=== PATIENT | female | born 1960 | race Caucasian/White ===

== ENCOUNTER 2018-01-12 23:16 | Inpatient (IN) | payer BC ==
[2018-01-13] MEDS ORDERED: ONDANSETRON 4MG/2ML VIAL (J2405) As Ordered ×2 (00:59→14:39)
[2018-01-13] MEDS ORDERED: MORPHINE 4 MG/ML 1ML VIAL/SYRINGE (J2270) As Ordered (00:59)
[2018-01-13] MEDS: ONDANSETRON 4MG/2ML VIAL (J2405) IV (01:14)
[2018-01-13] MEDS: MORPHINE 4 MG/ML 1ML VIAL/SYRINGE (J2270) IV ×4 (01:14→19:47)
[2018-01-13 01:56] LABS: BASO % 0.2 % (0.0-1.0); EOS % 0.1 % (0.0-3.0); HEMATOCRIT 38.7 % (36.0-47.0); HEMOGLOBIN 13.6 g/dl (12.0-15.5); IMMATURE GRANULOCYTE % 0.6 % (0-3.0); LYMPH # 0.5 10^3/uL (1.5-4.5); LYMPH % 3.6 % (24.0-44.0); MEAN CORPUSCULAR HGB CONC 35.1 g/dl (32.0-36.5); MEAN CORPUSCULAR VOLUME 82.5 fl (80.0-96.0); MONO # 0.8 10^3/uL (0.0-0.8); MONO % 5.7 % (0.0-5.0); NEUTROPHILS # 12.9 10^3/uL (1.8-7.7); NEUTROPHILS % 89.8 % (36.0-66.0); PLATELET COUNT, AUTOMATED 261 10^3/uL (150-450); RED BLOOD COUNT 4.69 10^6/uL (4.00-5.40); RED CELL DISTRIBUTION WIDTH 12.2 % (11.5-14.5); WHITE BLOOD COUNT 14.3 10^3/uL (4.0-10.0)
[2018-01-13 02:14] LABS: INR 1.03; PROTHROMBIN TIME 13.6 SECONDS (12.1-14.4)
[2018-01-13 02:15] LABS: PARTIAL THROMBOPLASTIN TIME 24.6 SECONDS (25.4-37.6)
[2018-01-13 02:18] LABS: ANION GAP 10 MEQ/L (8-16); BLOOD UREA NITROGEN 21 MG/DL (7-18); CALCIUM LEVEL 8.6 MG/DL (8.5-10.1); CARBON DIOXIDE LEVEL 24 MEQ/L (21-32); CHLORIDE LEVEL 104 MEQ/L (98-107); CREATININE FOR GFR 0.78 MG/DL (0.55-1.30); GLOMERULAR FILTRATION RATE > 60.0 (>51); GLUCOSE, FASTING 323 MG/DL (70-100); POTASSIUM SERUM 4.2 MEQ/L (3.5-5.1); SODIUM LEVEL 138 MEQ/L (136-145)
[2018-01-13] MEDS: MORPHINE 2 MG/ML 1ML SYRINGE (J2270) IV (04:23)
[2018-01-13] MEDS ORDERED: ONDANSETRON 4MG/2ML VIAL (J2405) IV ×2 (04:45→17:00)
[2018-01-13] MEDS ORDERED: GLUCAGON FOR INJ 1 MG VIAL (J1610) SC (05:00)
[2018-01-13] MEDS ORDERED: GLUCOSE 4 GM CHEW TABLET PO (05:00)
[2018-01-13] MEDS ORDERED: DEXTROSE 50% 50 ML SYRINGE IV (05:00)
[2018-01-13] MEDS: NS 1,000 ML IV ×2 (06:17→14:34)
[2018-01-13 06:23] LABS: BEDSIDE GLUCOSE 283 MG/DL (70-105)
[2018-01-13] MEDS: HumaLOG INSULIN (NovoLOG) PER UNIT SC ×6 (06:35→23:53)
[2018-01-13] MEDS ORDERED: PERCOCET 5MG/325MG TAB PO ×2 (07:15→17:15)
[2018-01-13] MEDS: PERCOCET 5MG/325MG TAB PO ×3 (08:05→23:48)
[2018-01-13 08:59] LABS: BASO % 0.3 % (0.0-1.0); EOS # 0.1 10^3/uL (0.0-0.50); HEMATOCRIT 36.1 % (36.0-47.0); HEMOGLOBIN 12.8 g/dl (12.0-15.5); IMMATURE GRANULOCYTE % 0.3 % (0-3.0); LYMPH # 0.7 10^3/uL (1.5-4.5); LYMPH % 12.1 % (24.0-44.0); MEAN CORPUSCULAR HEMOGLOBIN 29.1 pg (27.0-33.0); MEAN CORPUSCULAR HGB CONC 35.5 g/dl (32.0-36.5); MONO # 0.8 10^3/uL (0.0-0.8); MONO % 13.8 % (0.0-5.0); NEUTROPHILS # 4.2 10^3/uL (1.8-7.7); NEUTROPHILS % 72.5 % (36.0-66.0); PLATELET COUNT, AUTOMATED 243 10^3/uL (150-450); RED CELL DISTRIBUTION WIDTH 12.3 % (11.5-14.5); WHITE BLOOD COUNT 5.8 10^3/uL (4.0-10.0)
[2018-01-13 09:27] LABS: ALBUMIN 3.1 GM/DL (3.2-5.2); ALBUMIN/GLOBULIN RATIO 1.03 (1.00-1.93); ALKALINE PHOSPHATASE 77 U/L (45-117); ALT/SGPT 29 U/L (12-78); ANION GAP 8 MEQ/L (8-16); AST/SGOT 14 U/L (7-37); BILIRUBIN,TOTAL 0.8 MG/DL (0.2-1.0); BLOOD UREA NITROGEN 17 MG/DL (7-18); CALCIUM LEVEL 7.9 MG/DL (8.5-10.1); CARBON DIOXIDE LEVEL 27 MEQ/L (21-32); CHLORIDE LEVEL 106 MEQ/L (98-107); GLOMERULAR FILTRATION RATE > 60.0 (>51); GLUCOSE, FASTING 252 MG/DL (70-100); SODIUM LEVEL 141 MEQ/L (136-145); TOTAL PROTEIN 6.1 GM/DL (6.4-8.2)
[2018-01-13 09:41] LABS: ESTIMATED AVERAGE GLUCOSE 255 MG/DL (60-110); HEMOGLOBIN A1c 10.5 %
[2018-01-13 12:02] LABS: BEDSIDE GLUCOSE 221 MG/DL (70-105)
[2018-01-13] MEDS ORDERED: PROPOFOL 200 MG/20 ML VIAL As Ordered (14:03)
[2018-01-13] MEDS ORDERED: LIDOCAINE 2% INJ 100 MG/5 ML SDV (FOR ANES.) As Ordered (14:03)
[2018-01-13] MEDS ORDERED: fentaNYL 100 MCG/2 ML INJECTION (J3010) As Ordered ×2 (14:04→17:30)
[2018-01-13] MEDS ORDERED: MIDAZOLAM INJ 2 MG/2 ML VIAL (J2250) As Ordered (14:04)
[2018-01-13] MEDS ORDERED: ROCURONIUM BROMIDE 50 MG/5 ML VIAL As Ordered (14:23)
[2018-01-13] MEDS ORDERED: METOCLOPRAMIDE INJ 10MG/2ML VIAL (J2765) As Ordered (14:39)
[2018-01-13] MEDS: ceFAZolin 2 GM/D5W 50 ML IV BAG (J0690 PER 500MG) As Ordered (15:19)
[2018-01-13] MEDS ORDERED: HYDROmorphone HCL 2 MG/ML 1ML VIAL (J1170) As Ordered (15:26)
[2018-01-13] MEDS ORDERED: GLYCOPYRROLATE INJ 0.2 MG/ML 2 ML VIAL As Ordered ×2 (16:13)
[2018-01-13] MEDS ORDERED: NEOSTIGMINE 10 MG/10 ML VIAL (J2710) As Ordered (16:13)
[2018-01-13] MEDS: LR 1,000 ML IV (17:00)
[2018-01-13 17:10] LABS: BEDSIDE GLUCOSE 264 MG/DL (70-105)
[2018-01-13] MEDS ORDERED: PERCOCET 5MG/325MG TAB As Ordered (17:30)
[2018-01-13] MEDS: fentaNYL 100 MCG/2 ML INJECTION (J3010) IV (17:35)
[2018-01-13] MEDS ORDERED: HumaLOG INSULIN (NovoLOG) PER UNIT As Ordered (17:38)
[2018-01-13 23:49] LABS: BEDSIDE GLUCOSE 240 MG/DL (70-105)
[2018-01-14] MEDS: NS 1,000 ML IV (03:35)
[2018-01-14 05:21] LABS: BEDSIDE GLUCOSE 205 MG/DL (70-105)
[2018-01-14] MEDS: PERCOCET 5MG/325MG TAB PO ×3 (06:00→18:07)
[2018-01-14] MEDS: HumaLOG INSULIN (NovoLOG) PER UNIT SC ×4 (06:01→20:32)
[2018-01-14 07:00] LABS: HEMATOCRIT 34.3 % (36.0-47.0); HEMOGLOBIN 11.9 g/dl (12.0-15.5); MEAN CORPUSCULAR HEMOGLOBIN 28.7 pg (27.0-33.0); MEAN CORPUSCULAR HGB CONC 34.7 g/dl (32.0-36.5); MEAN CORPUSCULAR VOLUME 82.9 fl (80.0-96.0); PLATELET COUNT, AUTOMATED 210 10^3/uL (150-450); RED BLOOD COUNT 4.14 10^6/uL (4.00-5.40); RED CELL DISTRIBUTION WIDTH 12.2 % (11.5-14.5); WHITE BLOOD COUNT 7.4 10^3/uL (4.0-10.0)
[2018-01-14 07:21] LABS: ANION GAP 9 MEQ/L (8-16); BLOOD UREA NITROGEN 9 MG/DL (7-18); CARBON DIOXIDE LEVEL 24 MEQ/L (21-32); CHLORIDE LEVEL 106 MEQ/L (98-107); CREATININE FOR GFR 0.55 MG/DL (0.55-1.30); GLOMERULAR FILTRATION RATE > 60.0 (>51); GLUCOSE, FASTING 207 MG/DL (70-100); POTASSIUM SERUM 3.8 MEQ/L (3.5-5.1); SODIUM LEVEL 139 MEQ/L (136-145)
[2018-01-14] MEDS: MOM 30ML SUSPENSION UDC PO (09:13)
[2018-01-14] MEDS: MIRALAX *UNIT DOSE* 17GM PACKET PO (09:13)
[2018-01-14] MEDS: SENOKOT S TAB PO ×2 (09:13→20:45)
[2018-01-14 12:05] LABS: BEDSIDE GLUCOSE 255 MG/DL (70-105)
[2018-01-14 18:07] LABS: BEDSIDE GLUCOSE 251 MG/DL (70-105)
[2018-01-14] MEDS: RIVAROXABAN 10 MG TAB (XARELTO) PO (18:08)
[2018-01-14 20:41] LABS: BEDSIDE GLUCOSE 216 MG/DL (70-105)
[2018-01-15] MEDS: PERCOCET 5MG/325MG TAB PO ×4 (00:08→18:20)
[2018-01-15 06:27] LABS: HEMATOCRIT 35.5 % (36.0-47.0); HEMOGLOBIN 12.2 g/dl (12.0-15.5); MEAN CORPUSCULAR HEMOGLOBIN 29.2 pg (27.0-33.0); MEAN CORPUSCULAR HGB CONC 34.4 g/dl (32.0-36.5); MEAN CORPUSCULAR VOLUME 84.9 fl (80.0-96.0); PLATELET COUNT, AUTOMATED 212 10^3/uL (150-450); RED BLOOD COUNT 4.18 10^6/uL (4.00-5.40); RED CELL DISTRIBUTION WIDTH 12.3 % (11.5-14.5); WHITE BLOOD COUNT 8.3 10^3/uL (4.0-10.0)
[2018-01-15 06:38] LABS: ANION GAP 11 MEQ/L (8-16); BLOOD UREA NITROGEN 11 MG/DL (7-18); CALCIUM LEVEL 8.4 MG/DL (8.5-10.1); CARBON DIOXIDE LEVEL 24 MEQ/L (21-32); CHLORIDE LEVEL 104 MEQ/L (98-107); CREATININE FOR GFR 0.59 MG/DL (0.55-1.30); GLOMERULAR FILTRATION RATE > 60.0 (>51); GLUCOSE, FASTING 213 MG/DL (70-100); POTASSIUM SERUM 4.4 MEQ/L (3.5-5.1); SODIUM LEVEL 139 MEQ/L (136-145)
[2018-01-15] MEDS: MOM 30ML SUSPENSION UDC PO (07:54)
[2018-01-15] MEDS: MIRALAX *UNIT DOSE* 17GM PACKET PO (07:55)
[2018-01-15] MEDS: SENOKOT S TAB PO ×2 (07:55→21:40)
[2018-01-15] MEDS: HumaLOG INSULIN (NovoLOG) PER UNIT SC ×4 (07:56→21:41)
[2018-01-15 11:57] LABS: BEDSIDE GLUCOSE 264 MG/DL (70-105)
[2018-01-15 17:02] LABS: BEDSIDE GLUCOSE 282 MG/DL (70-105)
[2018-01-15] MEDS: RIVAROXABAN 10 MG TAB (XARELTO) PO (17:36)
[2018-01-15 21:07] LABS: BEDSIDE GLUCOSE 259 MG/DL (70-105)
[2018-01-15] MEDS: LEVEMIR (INSULIN DETEMIR) 1 UNITS/0.01ML SC (21:41)
[2018-01-16] MEDS: PERCOCET 5MG/325MG TAB PO ×4 (00:46→18:29)
[2018-01-16 07:25] LABS: HEMATOCRIT 32.6 % (36.0-47.0); HEMOGLOBIN 11.2 g/dl (12.0-15.5); MEAN CORPUSCULAR HEMOGLOBIN 28.9 pg (27.0-33.0); MEAN CORPUSCULAR HGB CONC 34.4 g/dl (32.0-36.5); MEAN CORPUSCULAR VOLUME 84.2 fl (80.0-96.0); PLATELET COUNT, AUTOMATED 214 10^3/uL (150-450); RED BLOOD COUNT 3.87 10^6/uL (4.00-5.40); RED CELL DISTRIBUTION WIDTH 12.1 % (11.5-14.5); WHITE BLOOD COUNT 6.8 10^3/uL (4.0-10.0)
[2018-01-16 07:42] LABS: ANION GAP 7 MEQ/L (8-16); BLOOD UREA NITROGEN 11 MG/DL (7-18); CALCIUM LEVEL 7.8 MG/DL (8.5-10.1); CARBON DIOXIDE LEVEL 28 MEQ/L (21-32); CHLORIDE LEVEL 103 MEQ/L (98-107); CREATININE FOR GFR 0.52 MG/DL (0.55-1.30); GLOMERULAR FILTRATION RATE > 60.0 (>51); GLUCOSE, FASTING 196 MG/DL (70-100); POTASSIUM SERUM 3.7 MEQ/L (3.5-5.1); SODIUM LEVEL 138 MEQ/L (136-145)
[2018-01-16] MEDS: MAGNESIUM CITRATE 300 ML BTL PO (08:19)
[2018-01-16] MEDS: SENOKOT S TAB PO ×2 (08:19→21:49)
[2018-01-16] MEDS: HumaLOG INSULIN (NovoLOG) PER UNIT SC ×4 (08:19→21:51)
[2018-01-16] MEDS: MIRALAX *UNIT DOSE* 17GM PACKET PO (08:19)
[2018-01-16] MEDS: MOM 30ML SUSPENSION UDC PO (08:19)
[2018-01-16 11:54] LABS: BEDSIDE GLUCOSE 272 MG/DL (70-105)
[2018-01-16 17:25] LABS: BEDSIDE GLUCOSE 166 MG/DL (70-105)
[2018-01-16] MEDS: RIVAROXABAN 10 MG TAB (XARELTO) PO (18:28)
[2018-01-16 21:41] LABS: BEDSIDE GLUCOSE 292 MG/DL (70-105)
[2018-01-16] MEDS: LEVEMIR (INSULIN DETEMIR) 1 UNITS/0.01ML SC (21:50)
[2018-01-17] MEDS: PERCOCET 5MG/325MG TAB PO ×3 (00:08→12:35)
[2018-01-17 07:11] LABS: HEMATOCRIT 31.2 % (36.0-47.0); HEMOGLOBIN 10.8 g/dl (12.0-15.5); MEAN CORPUSCULAR HEMOGLOBIN 29.3 pg (27.0-33.0); MEAN CORPUSCULAR HGB CONC 34.6 g/dl (32.0-36.5); MEAN CORPUSCULAR VOLUME 84.6 fl (80.0-96.0); PLATELET COUNT, AUTOMATED 242 10^3/uL (150-450); RED BLOOD COUNT 3.69 10^6/uL (4.00-5.40); RED CELL DISTRIBUTION WIDTH 12.3 % (11.5-14.5); WHITE BLOOD COUNT 4.9 10^3/uL (4.0-10.0)
[2018-01-17 07:27] LABS: ANION GAP 6 MEQ/L (8-16); BLOOD UREA NITROGEN 10 MG/DL (7-18); CALCIUM LEVEL 8.3 MG/DL (8.5-10.1); CARBON DIOXIDE LEVEL 31 MEQ/L (21-32); CHLORIDE LEVEL 103 MEQ/L (98-107); CREATININE FOR GFR 0.52 MG/DL (0.55-1.30); GLOMERULAR FILTRATION RATE > 60.0 (>51); GLUCOSE, FASTING 190 MG/DL (70-100); POTASSIUM SERUM 4.2 MEQ/L (3.5-5.1); SODIUM LEVEL 140 MEQ/L (136-145)
[2018-01-17] MEDS: MIRALAX *UNIT DOSE* 17GM PACKET PO (08:20)
[2018-01-17] MEDS: SENOKOT S TAB PO (08:20)
[2018-01-17] MEDS: MOM 30ML SUSPENSION UDC PO (08:20)
[2018-01-17] MEDS: HumaLOG INSULIN (NovoLOG) PER UNIT SC ×3 (08:21→12:54)
[2018-01-17 12:55] LABS: BEDSIDE GLUCOSE 190 MG/DL (70-105)
== END 2018-01-17 14:10 | DRG 308 ==
LOC: M ED 23:16 → M ED INP 01-13 04:34 → M MS5PR 01-13 05:50
PROC: 0QS704Z Reposition Left Upper Femur with Internal Fixation Device, Open Approach (ICD-10-PCS; principal; 2018-01-13 10:30)
DX: S72.142A Displaced intertrochanteric fracture of left femur, initial encounter for closed fracture (principal); G35 Multiple sclerosis; E11.9 Type 2 diabetes mellitus without complications; Z79.899 Other long term (current) drug therapy; W17.89XA Other fall from one level to another, initial encounter; Y92.009 Unspecified place in unspecified non-institutional (private) residence as the place of occurrence of the external cause